=== PATIENT | female | born 1995 | race Caucasian/White ===

== ENCOUNTER → 2016-11-21 | Outpatient (CLI) | payer OTHER ==
[~2016-11-21] MED LIST: BCPILLS PO; CETI10TA84 PO; FLUT1SPR12 NAE; LANS30CA12 PO; MULT-506 PO
[2016-11-25 15:28] LABS: IGA SERUM 184 mg/dL (81-463); TIS TRANS IGA 1 U/mL (<4)
== END | disposition home or self-care (01) ==
LOC: C.LAB1850 16:43
PROVIDERS: ATTEND Registered Nurse
DX: R14.0 Abdominal distension (gaseous) (principal)

== ENCOUNTER → 2016-12-17 | Outpatient (CLI) | payer OTHER ==
--- NOTE | 2016-12-17 12:06 | DIAGNOSTIC IMAGING REPORT ---
CT SCAN OF THE PARANASAL SINUSES CLINICAL HISTORY: Acute sinusitis. COMPARISON STUDY: No priors. TECHNIQUE: High-resolution CT scan of the paranasal sinuses is performed. Images are reviewed in the axial, sagittal, and coronal planes. IV contrast was not administered for this examination. CT DOSE: 269.19 mGycm FINDINGS: Maxillary antra: Clear bilaterally. Anterior ethmoid sinuses: Clear. Posterior ethmoid sinuses: Clear. Sphenoid sinuses: Clear. Frontal sinuses: Clear. Ostiomeatal complexes: Patent bilaterally. There are small bilateral Isela cells. Frontoethmoidal and sphenoethmoidal recesses: Patent bilaterally. Carotid arteries: The carotid arteries are covered and without septal attachments. Ethmoid roofs: The ethmoid roofs are symmetric. Nasal turbinates: There is bishop bullosa of the left middle nasal turbinate. Nasal septum: There is minimal rightward deviation of the bony nasal septum. Optic nerves: Covered. Orbits: The bony orbits are intact. Orbital contents are normal in appearance. Calvarium: The imaged calvarium is normal in appearance. Degenerative change is noted involving the temporomandibular joints. Mastoid air cells: Well pneumatized. Brain parenchyma: Partially visualized brain parenchyma is within normal limits. IMPRESSION: No significant paranasal sinus disease. See above. Electronically signed by: Parish Johnson M.D. 12/17/2016 12:05 PM Dictated Date/Time: 12/17/2016 12:02 PM
== END | disposition home or self-care (01) ==
LOC: C.CTS 11:35
PROVIDERS: ATTEND Family Medicine
DX: J01.90 Acute sinusitis, unspecified (principal)

== ENCOUNTER → 2017-02-06 | Day surgery (SDC) | payer OTHER ==
[2017-02-05 07:34] VITALS: Ht 157.5 cm; Wt 56.8 kg
[~2017-02-06] VITALS: Ht 157.5 cm; Wt 56.8 kg
[~2017-02-06] MED LIST changes: +FENTANYL CITR 50 MCG/1 ML 5ML VIAL ONE; +MIDAZOLAM HCL 5 MG/ML 1 ML VIAL ONE
--- NOTE | 2017-02-06 09:03 | Endo History and Physical ---
History & Physical Date of Service: February 06, 2017. Chief Complaint: abdominal pain and bloating Referring Physician: [facility] History of Present Illness 21 yo CF who presents for EGD secondary to abdominal pain and bloating. Past Surgical History Hx Cardiac Surgery: No Hx Internal Defibrillator: No Hx Pacemaker: No Hx Abdominal Surgery: No Hx of Implantable Prosthesis: No Hx Cancer Surgery: No Hx Thoracic Surgery: No Hx Orthopedic: No Hx Urinary Tract Surgery: No Family History None Social History Smoking Status: Never Smoker Hx Substance Use: No Hx Alcohol Use: No Allergies Coded Allergies: NO KNOWN DRUG ALLERGIES (Verified Allergy, Unknown, ., 02/05/17) Current Medications Reported Home Medications Medications Dose Route/Sig Max Daily Dose Days Date Category Multivitamin (Multivitamins) Tab 1 Tab PO QAM 02/05/17 Reported Zyrtec (Cetirizine HCl) 10 Mg Tab 10 Mg PO QPM 02/05/17 Reported Prevacid (Lansoprazole) 30 Mg Capcr 30 Mg PO QAM 02/05/17 Reported Control Pills (Miscellaneous) Tab 1 Tab PO QPM 02/05/17 Reported Flonase Allergy Relief Ch (Fluticasone Propionate (Nasal)) 50 Mcg/Act Spr 1 [place] BERNA QAM 02/05/17 Reported Vital Signs Weight (Kilograms): 56.82 Height (Feet): 5 Height (Inches): 2 Date Time Temp Pulse Resp B/P Pulse Ox O2 Delivery O2 Flow Rate FiO2 02/06/17 08:31 36.6 70 18 118/76 100 Room Air Physical Exam General Appearance: WD/WN, no apparent distress Respiratory/Chest: Auscultation: breath sounds normal Cardiovascular: Heart Auscultation: RRR Abdomen: Bowel Sounds: normal Inspection & Palpation: soft, non-distended, no tenderness, guarding & rebound Assessment and Plan Assessment: 21 yo CF who presents for EGD secondary to abdominal pain and bloating. Plan: Proceed with EGD
--- NOTE | 2017-02-06 09:21 | Discharge Instructions ---
Endoscopy Patient Instructions Date / Procedure(s) Performed February 06, 2017. EGD Allergy Information Coded Allergies: NO KNOWN DRUG ALLERGIES (Verified Allergy, Unknown, ., 02/05/17) Discharge Date / Findings February 06, 2017. Gastritis s/p biopsies Medication Instructions OK to resume all medications today as prescribed Reported Home Medications Medications Dose Route/Sig Max Daily Dose Days Date Category Multivitamin (Multivitamins) Tab 1 Tab PO QAM 02/05/17 Reported Zyrtec (Cetirizine HCl) 10 Mg Tab 10 Mg PO QPM 02/05/17 Reported Prevacid (Lansoprazole) 30 Mg Capcr 30 Mg PO QAM 02/05/17 Reported Control Pills (Miscellaneous) Tab 1 Tab PO QPM 02/05/17 Reported Flonase Allergy Relief Ch (Fluticasone Propionate (Nasal)) 50 Mcg/Act Spr 1 [place] BERNA QAM 02/05/17 Reported Provider Instructions Activity Restrictions - No exercising or heavy lifting for 24 hours. - Do not drink alcohol the day of the procedure. - Do not drive a car or operate machinery until the day after the procedure. - Do not make any important decisions or sign important papers in 24 hours after the procedure. Following Day: - Return to full activity which may include returning to work/school. Diet Start your diet with liquids and light foods (jello, soup, juice, toast). Then eat your usual diet if not nauseated. Treatment For Common After Affects For mild abdominal pain, bloating, or excessive gas: - Rest - Eat lightly - Lie on right side Follow-Up Information Follow-up with [facility] as scheduled Anesthesia Information What You Should Know You have had a procedure that required some medicine to reduce anxiety and discomfort. This treatment is called moderate sedation. After receiving the treatment, you may be sleepy, but you will be able to breathe on your own. The effects of the treatment may last for several hours. Follow these instructions along with Activity/Diet recommendations noted above: * Do NOT do anything where dizziness or clumsiness would be dangerous. * Rest quietly at home today, then you can be up and about tomorrow. * Have a responsible person stay with you the rest of today. * You may have had an I.V. today. If so, you may take the dressing off later today. Recommendations Call your doctor if: * Trouble breathing * Continuous vomiting for more than 24 hours * Temperature above 101 degrees * Severe abdominal pain or bloating * Pain not relieved by pain medicine ordered * There is increased drainage or redness from any incision * A large amount of rectal bleeding greater than 2-3 tablespoons. (If you had a polyp/s removed or have hemorrhoids, a small amount of blood - from the rectum is to be expected.) * You have any unanswered questions or concerns. IN THE EVENT OF A SERIOUS EMERGENCY, GO TO THE NEAREST EMERGENCY ROOM Your discharge instructions were prepared by provider Nayan Elizabeth. Patient Instructions Signature Page Kate Darby Patient (or Guardian) Signature/Date: I have read and understand the instructions given to me by my caregivers. Caregiver/RN/Doctor Signature/Date: The above-named patient and/or guardian has received patient instructions on this date. + Original Patient Signature Page (only) stays with chart. Please make copy for patient.
--- NOTE | 2017-02-06 09:29 | GI REPORT ---
Procedure Date: 02/06/2017 8:40 AM THIS REPORT HAS BEEN AMENDED Addendum Number: 1 Addendum Date: 02/06/2017 10:11:28 AM Patient did not receive Monitored anesthesia care. She underwent conscious sedations and received Versed 6mg IV in divided doses and Fentanyl 100 micrograms IV in divided doses. Procedure: Upper GI endoscopy Indications: Epigastric abdominal pain, Abdominal bloating Medicines: Monitored Anesthesia Care Complications: No immediate complications. Estimated Blood Loss: Estimated blood loss: none. Procedure: Pre-Anesthesia Assessment: - Prior to the procedure, a History and Physical was performed, and patient medications and allergies were reviewed. The patient's tolerance of previous anesthesia was also reviewed. The risks and benefits of the procedure and the sedation options and risks were discussed with the patient. All questions were answered, and informed consent was obtained. Prior Anticoagulants: The patient has taken no previous anticoagulant or antiplatelet agents. ASA Grade Assessment: II - A patient with mild systemic disease. After reviewing the risks and benefits, the patient was deemed in satisfactory condition to undergo the procedure. After obtaining informed consent, the endoscope was passed under direct vision. Throughout the procedure, the patient's blood pressure, pulse, and oxygen saturations were monitored continuously. The scope was introduced through the mouth, and advanced to the second part of duodenum. The upper GI endoscopy was accomplished without difficulty. The patient tolerated the procedure well. Findings: The examined esophagus was normal. Localized mild inflammation characterized by erythema was found in the gastric antrum. Biopsies were taken with a cold forceps for histology. The examined duodenum was normal. Impression: - Normal esophagus. - Gastritis. Biopsied. - Normal examined duodenum. Recommendation: - Resume previous diet. - Continue present medications. - Await pathology results. - Return to primary care physician as previously scheduled. Nayan Elizabeth, DO 02/06/2017 9:28:40 AM This report has been signed electronically. Note Initiated On: 02/06/2017 8:40 AM I attest to the content of the Intraoperative Record and orders documented therein, exceptions below Nayan Elizabeth, DO 02/06/2017 10:12:20 AM This report has been signed electronically.
[2017-02-06 09:55] VITALS: BP 96/48; PULSE 57; O2SAT 99
== END | disposition home or self-care (01) ==
LOC: C.GI 08:10
PROVIDERS: ATTEND Internal Medicine
DX: K29.50 Unspecified chronic gastritis without bleeding (principal); R14.0 Abdominal distension (gaseous)